=== PATIENT | male | born 1935 | race Caucasian/White ===

== ENCOUNTER 2018-05-26 07:15 | Outpatient (CLI) | END 2018-05-26 07:42 | disposition short-term general hospital (02) | LOC: AMBL 07:15 | PROVIDERS: ATTEND Internal Medicine | DX: R41.82 Altered mental status, unspecified (principal); R47.81 Slurred speech; R29.810 Facial weakness; I48.91 Unspecified atrial fibrillation ==

== ENCOUNTER 2018-06-24 10:20 | Outpatient (RCR) ==
--- NOTE | 2018-06-26 08:50 | RS.OPPTEV2 ---
Date of Note: 06/24/18 Visit #: 1 Number of visits approved by Insurance: n/a Date of Evaluation: 06/24/18 Payer Source: MEDICARE Surgery Performed?: No Treatment Diagnosis: gait difficulty, muscle weakness History of Condition/Mechanism of Injury:: pt with increased weakness and difficulty walking. Level of Function: pt has some assistance from at home, unclear how much assist he has at home. Functional Limitations: Pushing, Pulling, Lifting, Standing, Bending, Squatting , Ambulation, Community Access/Integration Current Subjective/complaints:: pt states he is weak and feels like he has some trouble walking Treatment Side (optional): N/A *Precautions: fall precautions Medical History Medical History: Diabetes, Arthritis, Cancer (colon) Surgical History Comments:: colon resection, fingers removed Smoking Status: Never smoker Hx Home Medications: acetaminophen, aspirin, atorvastatin, cholecalciferol, citalopram, colestipol, donepezil, fluticasone, hydrocortisone, levothyroxine, melatonin, memantine, risperdal, trazodone Patient's Goals: get stronger Functional Outcome Measure Tinetti: 12 - G Codes & Severity Modifier G Codes & Modifier: n/a Source of G Code score: n/a Observation - Observation Inspection: pt with excessive drooling which effects speech intelligibility. pt also with very weak voice. pt with significant forward head posture. Posture: Forward Head, Rounded Shoulders, Increased Thoracic Kyphosis Handedness: Right Gait - Gait Pattern General Gait Pattern Observation: Shuffling Step, Decrease Stride Lngth (R), Decrease Stride Lngth (L) Gait Comments: pt with flexed posture, decreased step length, knees flexed with shuffling gait at times. pt amb with rwx with CGA. Gait speed: 0.7 meters/ second consistent with limited community ambulator General Range of Motion: BUE shld flex limited. BLE knee ext AAROM: R knee ext -8, L knee ext -15. cervical extension is also limited Muscle Strength: BUE shld flex 3-/5, elbow flex/ext 4/5. BLE hip flex 3+/5, knee flex 4-/5, ext 3-/5, ankle DF/PF 4-/5 Palpation Palpation Findings: None/Normal Sensation - Sensation Right Upper Extremity: Intact/Normal Left Upper Extremity: Intact/Normal Right Lower Extremity: Intact/Normal Left Lower Extremity: Intact/Normal Balance - Sitting Balance Static Sitting Balance: Good Dynamic Sitting Balance: Fair - Standing Balance Static Standing Balance: Poor Dynamic Standing Balance: Poor - Comments Balance Assessment Comments: Tinetti balance scale: 03/29 consistent with high risk of falls. Interventions - Exercise/Activities/Manual Therapy Exercises/Activities: pt performed isometric hip add, resisted hip abd with red theraband, seated hip flex, LAQ Manual Therapy: n/a HOME EXERCISE PROGRAM: pt given written HEP including: isometric hip add, resisted hip abd, seated hip flex, LAQ - Charges Timed Code Treatment Minutes: 51 Total Treatment Time: 59 Procedures billed for this date of service:: eval med, ex EVALUATION COMPLEXITY LEVEL EVALUATION COMPLEXITY LEVEL: HISTORY: Medium, EXAM OF BODY SYSTEMS: Medium, CLINICAL PRESENTATION: Medium, CLINICAL DECISION MAKING: Medium Assessment Assessment: pt presents with high fall risk, decreased strength, balance as well as poor posture, decreased gait ability. Feel pt would benefit from skilled PT for therex for LE strengthening, ROM as well as gait training. Patient Education: Home Exercise Program, Education of Plan of Care Rehab Potential: Good Short Term Goals Goal #1: pt independent with initial HEP Goal to be met by: 07/15/18 Goal #2: pt amb with rwx in dept with no LOB Goal to be met by: 07/15/18 Goal #3: Improve BLE knee ext -5 Goal to be met by: 07/15/18 Goal #4: Improve dyn stand balance as noted by tinetti balance Goal to be met by: 07/15/18 Retirement Goals Goal #1: pt able to perform ADL's and amb in home with decreased assist of family Goal to be met by: 08/02/18 Goal #2: pt with no reports of falls Goal to be met by: 08/02/18 Goal #3: Improve BLE strength 4/5 Goal to be met by: 08/02/18 Goal #4: Improve gait speed 0.9 meters/sec consistent with community ambulator Goal to be met by: 08/02/18 Plan - Treatment to be Provided Procedures: Therapeutic Exercises, Therapeutic Activity, Gait Training, Neuromuscular Rehab, Patient Education Modalities: No Modalities - Treatment Plan Frequency: 2-3x a week Duration: 6 weeks Dates of Retirement Goals: 08/02/18 Expiration date of current Insurance Approval:: n/a - Treatment Code (1) Gait difficulty Code(s): R26.9 - UNSPECIFIED ABNORMALITIES OF GAIT AND MOBILITY (2) Impairment of balance Code(s): R26.89 - OTHER ABNORMALITIES OF GAIT AND MOBILITY (3) Muscle weakness Code(s): M62.81 - MUSCLE WEAKNESS (GENERALIZED)
[2018-06-26 15:02] VITALS: BMI 20.5
== END 2018-06-30 23:59 ==
PROVIDERS: ATTEND Family Medicine
DX: R26.9 Unspecified abnormalities of gait and mobility (principal)

== ENCOUNTER 2018-06-26 09:34 | Outpatient (CLI) ==
[2018-06-26 15:02] VITALS: BMI 20.5
== END 2018-06-26 09:46 | disposition critical access hospital (66) ==
LOC: AMBL 09:34
PROVIDERS: ATTEND Emergency Medicine
DX: R53.1 Weakness (principal); W19.XXXA Unspecified fall, initial encounter; L89.309 Pressure ulcer of unspecified buttock, unspecified stage; R63.0 Anorexia

== ENCOUNTER 2018-06-26 09:53 | Inpatient (IN) ==
--- NOTE | 2018-06-26 10:46 | ED.PDOC ---
General ED Provider: Dr. NORA OLVERA Chief Complaint: Weakness Stated Complaint: fell while being walked by his and she went down too.No head injury or any other trauma reported by who does most of the talking, Old CVA Time Seen by Physician: 10:46 Mode of Arrival: Ambulance Information Source: Patient Exam Limitations: No limitations Primary Care Provider: ALBERTO ROPER Nursing and Triage Documentation Reviewed and Agree: Yes Does patient meet sepsis criteria?: No System Inflammatory Response Syndrome: Not Applicable Sepsis Protocol: For patient's 13 years and over: Temp is 96.8 and below OR 101 and greater Pulse >90 BPM Resp >20/minute Acutely Altered Mental Status Are patient's symptoms suggestive of a new infection, such as: -Pneumonia -Skin, Soft Tissue -Endocarditis -UTI -Bone, Joint Infection -Implantable Device -Acute Abdominal Infection -Wound Infection -Meningitis -Blood Stream Catheter Infection -Unknown Musculoskeletal Complaint Exam - Hand/Wrist Complaint/Exam Location of Pain: Reports: Right, Wrist Mechanism of Injury: Reports: Other Onset/Duration: fell Symptoms Are: Resolved Onset of Pain: Reports: Immediate Initial Severity: Mild Current Severity: None Location: Reports: Discrete Character: Reports: Aching Alleviating: Reports: Rest Aggravating: Reports: Movement Associated Signs and Symptoms: Reports: Weakness Related History: Reports: Similar episode Dominant Hand: Right Related Surgical History: Reports: None Differential Diagnoses: Contusion, Dislocation Review of Systems - Review Of Systems Constitutional: Reports: Malaise, Weakness Eyes: Reports: No symptoms Ears, Nose, Mouth, Throat: Reports: No symptoms Respiratory: Reports: No symptoms Cardiac: Reports: No symptoms GI: Reports: No symptoms : Reports: Hematuria Musculoskeletal: Reports: No symptoms Neurological: Reports: Cognitive dysfunction, Weakness, Other Endocrine: Reports: No symptoms Hematologic/Lymphatic: Reports: No symptoms All Other Systems: Reviewed and Negative Past Medical History - Past Medical History Previously Healthy: No Endocrine: Reports: None Cardiovascular: Reports: None Respiratory: Reports: None Hematological: Reports: None Gastrointestinal: Reports: None Genitourinary: Reports: None Neuro/Psych: Reports: Dementia Musculoskeletal: Reports: None Cancer: Reports: None - Surgical History General Surgical History: Reports: None - Family History Family History: Reports: None - Social History Smoking Status: Former smoker, Never smoker Hx Substance Use: No Alcohol Screening: None - Immunizations Tetanus Shot up to Date: Yes Physical Exam - Physical Exam Appearance: Thin Ill-appearing: Mild Pain Distress: None Eyes: JARRETT ENT: Ears normal Neck: Supple Respiratory: Airway patent Cardiovascular: RRR GI/: Soft Musculoskeletal: Limited ROM Skin: Warm Neurological: Sensation intact Psychiatric: Affect appropriate Re-Evaluation - Re-Evaluation Time of Re-Evaluation: 12:15 Status: Unchanged Vital Signs Stable: Yes (K reported at 6.4) Pain Level: none Appearance: NAD Lungs: Clear Skin: Warm and Dry Neuro: Other (Sundowners dementia) CV: RRR Additional Comments: Sundowners dementia/chronic/Kayax,and Albut neb for elevK, EKG normal, Critical Care Note - Critical Care Note Total Time (mins): 0 Course - Course Hematology/Chemistry: 06/26/18 11:20 06/26/18 11:20 Orders, Labs, Meds: Lab Review 06/26/18 06/26/18 06/26/18 11:20 11:20 11:20 WBC 6.42 RBC 3.44 L Hgb 10.6 L Hct 32.5 L MCV 94.5 H MCH 30.8 MCHC 32.6 RDW Coeff of Nik 13.6 Plt Count 208 Immature Gran % (Auto) 0.6 Neut % (Auto) 73.1 Lymph % (Auto) 17.8 [place] % (Auto) 7.3 Eos % (Auto) 0.9 Baso % (Auto) 0.3 Immature Gran # (Auto) 0.0 Neut # (Auto) 4.7 Lymph # (Auto) 1.1 [place] # (Auto) 0.5 Eos # (Auto) 0.1 Baso # (Auto) 0.0 Puncture Site O2 Saturation ABG pH ABG pCO2 ABG pO2 ABG HCO3 ABG Total CO2 ABG Base Excess Montrell Test O2 Delivery Device FiO2 % Sodium 140.6 Potassium 6.20 H* Chloride 113.1 H Carbon Dioxide 20.9 L Anion Gap 12.80 BUN 28.2 H Creatinine 1.77 H Estimated GFR (MDRD) 37.00 BUN/Creatinine Ratio 15.93 Glucose 86.5 Calcium 9.45 Total Bilirubin 0.37 AST 26.0 ALT 24.0 Alkaline Phosphatase 169.7 H Total Creatine Kinase 29.0 L Troponin I < 0.012 Total Protein 6.74 Albumin 3.90 Globulin 2.84 Albumin/Globulin Ratio 1.37 TSH 2.890 06/26/18 12:32 WBC RBC Hgb Hct MCV MCH MCHC RDW Coeff of Nik Plt Count Immature Gran % (Auto) Neut % (Auto) Lymph % (Auto) [place] % (Auto) Eos % (Auto) Baso % (Auto) Immature Gran # (Auto) Neut # (Auto) Lymph # (Auto) [place] # (Auto) Eos # (Auto) Baso # (Auto) Puncture Site R rad O2 Saturation 97.0 ABG pH 7.317 L ABG pCO2 36.6 ABG pO2 101.0 H ABG HCO3 18.8 L ABG Total CO2 20 L ABG Base Excess -7 L Montrell Test + O2 Delivery Device Ra FiO2 % 21.0 Sodium Potassium Chloride Carbon Dioxide Anion Gap BUN Creatinine Estimated GFR (MDRD) BUN/Creatinine Ratio Glucose Calcium Total Bilirubin AST ALT Alkaline Phosphatase Total Creatine Kinase Troponin I Total Protein Albumin Globulin Albumin/Globulin Ratio TSH Orders Category Date Time Status ABG DRAW REQUEST Stat CARDIO 06/26/18 12:33 Completed EKG-(ED ONLY) Stat CARDIO 06/26/18 11:54 Completed NEBULIZER TREATMENT Stat CARDIO 06/26/18 12:14 Completed IV [ED IV/MEDIPORT/POWERPORT] .ONCE EMERGENCY 06/26/18 11:43 Active ABG Stat LAB 06/26/18 12:32 Completed CBC W/ AUTO DIFF Stat LAB 06/26/18 11:20 Completed COMPREHENSIVE METABOLIC PANEL Stat LAB 06/26/18 11:20 Completed CREATINE KINASE Stat LAB 06/26/18 11:20 Completed THYROID STIMULATING HORMONE Stat LAB 06/26/18 11:20 Completed TROPONIN I Stat LAB 06/26/18 11:20 Completed URINALYSIS C & S IF INDICATED Stat LAB 06/26/18 11:15 Uncollected 0.9 % Sodium Chloride [Saline Flush] MEDS 06/26/18 11:43 Active 1 syr IVF PRN PRN Albuterol Sulfate 0.083% Neb [Albuterol 0.083% Neb] MEDS 06/26/18 12:14 Discontinued 1 vial NEB ONCE STA Sodium Polystyrene Sulfonate [Kayexalate Susp] MEDS 06/26/18 12:15 Discontinued 20 gm PO ONCE STA CT HEAD W/O CONTRAST Stat RADS 06/26/18 10:50 Completed WRIST, RIGHT 3 VIEWS Stat RADS 06/26/18 10:49 Completed Medications Generic Name Dose Route Start Last Admin Trade Name Fremichell PRN Reason Stop Dose Admin Sodium Chloride 1 syr 06/26/18 11:43 Saline Flush IVF PRN PRN To flush IV Discontinued Medications Generic Name Dose Route Start Last Admin Trade Name Fremichell PRN Reason Stop Dose Admin Albuterol Sulfate 1 vial 06/26/18 12:14 06/26/18 12:32 Albuterol 0.083% Neb NEB 06/26/18 12:15 1 vial ONCE STA Administration Sodium Polystyrene Sulfonate 20 gm 06/26/18 12:15 06/26/18 12:29 Kayexalate Susp PO 06/26/18 12:16 20 gm ONCE STA Administration Vital Signs: Temp Pulse Resp BP Pulse Ox 06/26/18 09:53 96.9 F L 81 20 131/59 L 100 Departure - Departure Time of Disposition: 13:31 Disposition: ADMITTED INPATIENT Discharge Problem: Acute hyperkalemia Instructions: Fall Prevention for Older Adults (ED) Condition: Fair Pt referred to PMD for follow-up: Yes IPMP verified?: No Allergies/Adverse Reactions: Allergies Penicillins Allergy (Verified 06/26/18 10:03) Rash Home Medications: Ambulatory Orders Cholecalciferol (Vitamin D3) [Vitamin D3] 1,000 unit PO DAILY 09/11/17 Glipizide [Glipizide Xl] 5 mg PO DAILY 09/11/17 Metformin HCl 500 mg PO BID 09/11/17 Mv-Mn/Iron/FA/Vit K/K.ginseng [Centrum [employer] Tab] 1 each PO DAILY Atorvastatin Calcium [Lipitor] 40 mg PO DAILY 06/26/18 Citalopram Hydrobromide [Citalopram HBr] 10 mg PO DAILY 06/26/18 Colestipol HCl [Colestid] 2 gm PO BID 06/26/18 Donepezil HCl [Aricept] 10 mg PO DAILY 06/26/18 Fluticasone Propionate [Flonase] 1 spray NS BID 06/26/18 Hydrocortisone Acetate [Anucort-Hc] 1 supp RC BID 06/26/18 Hydrocortisone [Hydrocortisone 1% Cream] 1 applic TP BID 06/26/18 Levothyroxine Sodium [Synthroid] 88 mcg PO QDAC 06/26/18 Memantine HCl [Namenda] 10 mg PO BID 06/26/18 Risperidone [Risperdal] 0.25 mg PO BID 06/26/18 Trazodone HCl [Desyrel] 50 mg PO BEDTIME PRN 06/26/18 Disposition Discussed With: Patient, Family
--- NOTE | 2018-06-26 11:28 | DI ---
Exam: Right wrist three view HISTORY: Wrist contusion in fall. FINDINGS: Three views of the right wrist demonstrate no evidence of acute fracture or dislocation. There is no osseous erosion or radiodense foreign body. Atherosclerotic disease is noted. There is no soft tissue swelling. IMPRESSION: No acute fracture or dislocation involving the right wrist. Atherosclerosis.
--- NOTE | 2018-06-26 11:37 | CT ---
EXAM: CT Head HISTORY: Fall, old cerebrovascular accident COMPARISON: None TECHNIQUE: CT head performed without contrast FINDINGS: There is no mass effect, midline shift, or intracranial hemmorhage. Alexander white differenti ation is preserved. There is no extra-axial collection. The ventricles, sulci, and basal cisterns a re patent and symmetric. There is chronic ischemic disease of the white matter and cerebral volume l oss. Bilateral basal ganglia calcifications. There is no depressed calvarial fracture. Small bilat eral mastoid effusions. The visualized paranasal sinuses are clear. There are intracranial atheroscl erotic calcifications. IMPRESSION: 1. No acute intracranial abnormality. 2. 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
[2018-06-26] MEDS ORDERED: ALBUTEROL 0.083% NEB NEB STA (12:14)
[2018-06-26] MEDS ORDERED: KAYEXALATE SUSP PO STA (12:15)
[2018-06-26] MEDS ORDERED: TYLENOL PO PRN (13:56)
[2018-06-26] MEDS: SODIUM CHLORIDE 1,000 ML IV SCH (14:54)
[2018-06-26 15:02] VITALS: BMI 20.5
[2018-06-26] MEDS ORDERED: DESYREL PO PRN (19:51)
[2018-06-26] MEDS ORDERED: GLUCOPHAGE PO SCH (21:00)
[2018-06-26] MEDS ORDERED: COLESTID PO SCH (21:00)
[2018-06-26] MEDS: FLONASE NAS SCH (21:16)
[2018-06-26] MEDS: NAMENDA PO SCH (21:16)
[2018-06-26] MEDS: RISPERDAL PO SCH (21:17)
[2018-06-26] MEDS: ANUCORT-HC RC SCH (21:17)
[2018-06-27] MEDS: SODIUM CHLORIDE 1,000 ML IV SCH ×2 (03:26→17:13)
[2018-06-27] MEDS: SYNTHROID PO SCH (05:50)
[2018-06-27] MEDS ORDERED: NON-FORMULARY MEDICATION (Atorvastatin Calcium [Lipitor] 40 MG) PO SCH (09:00)
[2018-06-27] MEDS ORDERED: CITALOPRAM HYDROBROMIDE 10 MG PO SCH (09:00)
[2018-06-27] MEDS ORDERED: NON-FORMULARY MEDICATION (Cholecalciferol (Vitamin D3) [Vitamin D3] 1,000 UNIT) PO SCH (09:00)
[2018-06-27] MEDS ORDERED: GLIPIZIDE 5 MG PO SCH (09:00)
[2018-06-27] MEDS: FLONASE NAS SCH ×2 (09:08→21:09)
[2018-06-27] MEDS: ARICEPT PO SCH (09:10)
[2018-06-27] MEDS: VITAMIN D PO SCH (09:10)
[2018-06-27] MEDS: GLUCOPHAGE PO SCH ×2 (09:10→17:13)
[2018-06-27] MEDS: LIPITOR PO SCH (09:10)
[2018-06-27] MEDS: NAMENDA PO SCH ×2 (09:10→21:09)
[2018-06-27] MEDS: CELEXA PO SCH (09:11)
[2018-06-27] MEDS: RISPERDAL PO SCH ×2 (09:12→21:09)
[2018-06-27] MEDS: LOVENOX SUBCUT SCH (09:13)
[2018-06-27] MEDS: ANUCORT-HC RC SCH ×2 (09:51→21:09)
[2018-06-27] MEDS: GLUCOTROL XL PO SCH (09:52)
[2018-06-27] MEDS: COLESTID PO SCH ×2 (10:10→21:14)
--- NOTE | 2018-06-27 15:21 | RS.PTINEVL ---
Subjective - Patient information Date of Evaluation: 06/27/18 Date of Arrival on Unit: 06/26/18 Admitted From:: Home Diagnosis: fall at home, acute hyperkalemia, weakness Usual Living Arrangement: With Spouse Living Arrangement Comments: son lives with them and other son is very supportive. Home Environment: House Medical History: CVA/TIA, Dementia, Diabetes Medical History Comments:: hypothyroid, depression, anxiety, BPH, blind in L eye , kidney stones LATEX ALLERGY?: No Medications: see chart Subjective Information/ Patient Comments:: pt required encouragement to participate with PT, with spouse's encouragement pt agreed to to try to amb. Son reports pt fell yesterday am at home. - Level of function Prior to this admission, the patient could do the following:: Partially Dependent Ambulation Abilities prior to this admission: and son assisted with ADL's and amb at home. is poor historian. Current Level of Function: Partially Dependent Current Equipment Used at Home: rollator rolling walker Pain Assessement - Location all over Description: Aching Pain Behavior: Facial Grimacing Effects of Pain: pt unable to rate pain Interventions - Objective Patient Orientation: Person Current Interventions: IV's, Telemetry, Milligan Catheter Observation: pt with significant forward head posture. pt also with open wound on buttocks. Range of Motion - ROM Right Upper Extremity AROM: Slight limitation (BUE shld flex limited) Left Upper Extremity AROM: Slight limitation (BUE shld flex limited) Right Lower Extremity AROM: Slight limitation (decreased knee ext) Left Lower Extremity AROM: Slight limitation (decreased knee ext) Muscle Strength - Muscle Strength Right Upper Extremity Strength: Mild Weakness (shld flex 3-/5, elbow flex/ext 3/ 5, decreased jewelry designer) Left Upper Extremity Strength: Mild Weakness (shld flex 3-/5, elbow flex/ext 3/5 , decreased jewelry designer) Right Lower Extremity Strength: Mild Weakness (hip flex 3/5, knee flex 4-/5, ext 3-/5, ankle Df/PF 4-/5) Left Lower Extremity Strength: Mild Weakness (hip flex 3/5, knee flex 4-/5, ext 3-/5, ankle Df/PF 4-/5) Sensation - Sensation Right Upper Extremity Sensation: Intact/Normal Left Upper Extremity Sensation: Intact/Normal Right Lower Extremity Sensation: Intact/Normal Left Lower Extremity Sensation: Intact/Normal Palpation Palpation Findings: Tenderness Comments:: RLE Balance - Sitting Balance and Reactions Static Sitting Balance: Poor Dynamic Sitting Balance: Poor Sitting Equilibrium Reactions: Delayed Left, Delayed Right Sitting Protective Reactions: Delayed Left, Delayed Right - Standing Balance and Reactions Static Standing Balance: Poor Dynamic Standing Balance: Poor Standing Equilibrium Reactions: Delayed Left, Delayed Right Standing Protective Reactions: Delayed Left, Delayed Right - Comments Balance Assessment Comments: pt sit at side of bed with CGA, unable to maintain against challenges Functional Mobility - Bed Mobility Rolling R/L: Mod Assist Supine to Sit: Mod Assist, Max Assist, 2 person assist - Transfers Sit to Stand: Mod Assist, 2 person assist Stand to Sit: Min Assist, 2 person assist - Safety Awareness Safety Awareness: Poor MALIHA INDEX SCORE: n/a Ambulation - Ambulation Assistive Device Used: Rolling Walker Orthotic/Prosthetic Device: No Distance: 24ft Assistance needed with Ambulation: Min Assist, 2 person assist Gait Deviations: Forward posture, Short stride, Deviates from path Ambulation Comments: pt amb with decreased step length, flexed posture, as well as decreased ARNALDO Factors Affecting Ambulation: Decreased Balance, Pain, Weakness, Decreased Safety, Cognitive Status, Limited Endurance Treatment time - Time with patient Length of Evaluation: 18 Total treatment time: 25 Patient Education - Education Patient Education: Activity Modification, Education of Plan of Care Teaching Recipient: Patient Teaching Methods: Discussion Comments: discussion regarding POC as well as safety with transfers and gait. Assessment - Assessment Problem List:: Decreased level of function, Requires training/education, Decreased safety/Risk of falls, Weakness, Cognitive status limits abilities Rehab Potential: Fair Further Therapy Indicated?: Yes Candidate for Swing Bed for Therapy Services?: would have to reassess for swing bed at a later date. Evaluation Complexity: HISTORY: Medium, EXAM OF BODY SYSTEMS: Medium, CLINICAL PRESENTATION: Medium, CLINICAL DECISION MAKING: Medium Short Term Goals GOAL #1: pt demonstrate rolling and bridging in bed with min x 1 Goal to be met by: 07/01/18 GOAL #2: Transfer sup to/from sit min x 1 Goal to be met by: 07/01/18 GOAL #3: sit to/from stand min x 1 Goal to be met by: 07/01/18 GOAL #4: pt amb with rwx 75ft with min x 1 . Goal to be met by: 07/01/18 [facility] Goals GOAL #1: pt transferred sup to/from sit CGA, sit to/from stand CGA x 1 Goal to be met by: 07/03/18 GOAL #2: pt amb with rwx 100ft with CGA with improved posture. Goal to be met by: 07/03/18 GOAL #3: BLE strength improved to 4- to 4/5 Goal to be met by: 07/03/18 Plan Plan of Care: Therapeutic EX, Therapeutic Activity Other:: gait training Frequency of Treatment: 1-2 X day, as tolerated Duration of Treatment: 1 Week Anticipated Discharge Destination: undetermined Treatment Diagnosis (ICD 10 Codes): R26.2 difficulty walking. M62.81 weakness. R 26.81 balance impaired. R 29.6 falls Has the Physician been added for Co-signature?: Yes
[2018-06-28] MEDS: CALMOSEPTINE OINTMENT TP SCH ×2 (00:43→07:59)
[2018-06-28] MEDS: SYNTHROID PO SCH (05:33)
[2018-06-28 05:39] VITALS: BP 139/62; TEMP 99.3
[2018-06-28] MEDS: GLUCOPHAGE PO SCH (07:51)
[2018-06-28] MEDS: GLUCOTROL XL PO SCH (07:51)
[2018-06-28] MEDS: FLONASE NAS SCH (07:59)
[2018-06-28] MEDS: RISPERDAL PO SCH (07:59)
[2018-06-28] MEDS: VITAMIN D PO SCH (07:59)
[2018-06-28] MEDS: LIPITOR PO SCH (08:00)
[2018-06-28] MEDS: ARICEPT PO SCH (08:00)
[2018-06-28] MEDS: NAMENDA PO SCH (08:00)
[2018-06-28] MEDS: CELEXA PO SCH (08:00)
[2018-06-28] MEDS: LOVENOX SUBCUT SCH (08:01)
[2018-06-28] MEDS: ANUCORT-HC RC SCH (08:05)
[2018-06-28] MEDS: COLESTID PO SCH (10:33)
[2018-06-28] MEDS ORDERED: GLUCOTROL XL PO SCH (11:00)
== END 2018-06-28 15:24 | DRG 641 ==
LOC: ED 09:53 → MEDSURG B 14:02
PROVIDERS: ADMIT Family Medicine; ATTEND Family Medicine
DX: E87.5 Hyperkalemia (principal); E86.0 Dehydration; E11.9 Type 2 diabetes mellitus without complications; M25.531 Pain in right wrist; N18.9 Chronic kidney disease, unspecified; L89.302 Pressure ulcer of unspecified buttock, stage 2; F03.90 Unspecified dementia, unspecified severity, without behavioral disturbance, psychotic disturbance, mood disturbance, and anxiety; F32.9 Major depressive disorder, single episode, unspecified; D64.9 Anemia, unspecified; R53.81 Other malaise; R31.9 Hematuria, unspecified; R63.0 Anorexia; R26.9 Unspecified abnormalities of gait and mobility; W19.XXXA Unspecified fall, initial encounter
CPT/HCPCS: 36415; 80048; 80053; 81001; 82550; 82607; 82746; 82803; 82962; 84132; 84443; 84484; 85025; 87070; 87081; 87186; 93005; 93010; 94640; 97802; 99284

== ENCOUNTER 2018-08-10 03:40 | Outpatient (CLI) | END 2018-08-10 04:02 | disposition short-term general hospital (02) | LOC: AMBL 03:40 | PROVIDERS: ATTEND Family Medicine | DX: S00.11XA Contusion of right eyelid and periocular area, initial encounter (principal); S61.215A Laceration without foreign body of left ring finger without damage to nail, initial encounter; W19.XXXA Unspecified fall, initial encounter; Y92.122 Bedroom in nursing home as the place of occurrence of the external cause ==

== ENCOUNTER 2018-09-13 07:46 | Outpatient (CLI) ==
[2018-09-13 07:58] VITALS: BP 125/74; TEMP 97.2
[2018-09-13] MEDS ORDERED: INFED IVP STA (08:13)
[2018-09-13] MEDS ORDERED: INFED 975 MG in SODIUM CHLORIDE 500 ML IV STA (08:14)
== END 2018-09-13 07:47 | disposition home or self-care (01) ==
LOC: OPMED 07:46
PROVIDERS: ATTEND Family Medicine
DX: D50.9 Iron deficiency anemia, unspecified (principal); K90.9 Intestinal malabsorption, unspecified
CPT/HCPCS: 96365; 96366